=== PATIENT | male | born 1990 | race African-American/Black ===

== ENCOUNTER 2016-06-12 12:07 | Emergency (ER) | payer OTHER ==
[~2016-06-12] VITALS: Ht 167.6 cm; Wt 58.0 kg
[~2016-06-12 12:07] MED LIST: BENTYL20 MG PO
[2016-06-12] MEDS ORDERED: FLEXERIL10 MG PO (14:47)
[2016-06-12] MEDS ORDERED: NAPROSYN500 MG PO (14:47)
[2016-06-12 15:14] VITALS: BP 101/65
[2016-06-12] MEDS ORDERED: BENTYL20 MG PO (15:17)
== END 2016-06-12 15:21 | disposition home or self-care (01) ==
LOC: EME 12:07
DX: M54.5 Low back pain (principal); M25.562 Pain in left knee
CPT/HCPCS: 99281; 99283

== ENCOUNTER 2016-06-22 10:41 | Emergency (ER) | payer OTHER ==
[~2016-06-22] VITALS: Ht 170.2 cm; Wt 50.8 kg
[~2016-06-22 10:41] MED LIST changes: +FLEXERIL10 MG PO; +NAPROSYN500 MG PO
[2016-06-22 14:46] VITALS: BP 103/61
== END 2016-06-22 14:47 | disposition home or self-care (01) ==
LOC: EME → EDBD 10:41 → EME 10:41
PROC: 3E0234Z Introduction of Serum, Toxoid and Vaccine into Muscle, Percutaneous Approach (ICD-10-PCS; principal; 2016-06-22)
DX: S60.511A Abrasion of right hand, initial encounter (principal); S80.212A Abrasion, left knee, initial encounter; X99.1XXA Assault by knife, initial encounter; Y07.9 Unspecified perpetrator of maltreatment and neglect; Z23 Encounter for immunization
CPT/HCPCS: 99281; 99284

== ENCOUNTER 2016-06-24 09:38 | Emergency (ER) | payer OTHER ==
[~2016-06-24] VITALS: Ht 167.6 cm; Wt 58.2 kg
[2016-06-24 10:39] LABS: HEMATOCRIT 51.9 % (38.0-50.0); MCH 34.2 PG (29.0-34.0); MCHC 34.7 G/DL (30.0-36.0); MCV 98.5 FL (86-99); MEAN PLAT.VOLUME 9.6 uM^3 (9.0-12.4); PLATELET COUNT 249 K/uL (156-360); RBC DIS.WIDTH-CV 12.3 % (11.8-14.6); RED BLOOD COUNT 5.27 M/uL (4.00-5.50)
[2016-06-24 11:13] LABS: ADD MIUA? NO; BILIRUBIN NEGATIVE; BLOOD NEGATIVE; COLOR YELLOW ((YELLOW)); GLUCOSE (STRIP) NEGATIVE; KETONES NEGATIVE; LEUKOCYTES NEGATIVE; NITRITE NEGATIVE; PH, URINE 7.5 (5-8); PROTEIN (STRIP) NEGATIVE; SPECIFIC GRAVITY 1.019 (1.000-1.030); UCUL ADDED? NO; UROBILINOGEN 0.2 MG/DL (0.2-1.0)
[2016-06-24 11:25] LABS: AMPHETAMINE NEGATIVE (500 ng/mL); BARBITURATES NEGATIVE (200 ng/mL); BENZODIAZEPINES NEGATIVE (150 ng/mL); COCAINE NEGATIVE (150 ng/mL); INTERNAL CONTROLS VALID? YES; METHADONE NEGATIVE (200 ng/mL); METHAMPHETAMINE NEGATIVE (500 ng/mL); OPIATES (MORPHINE) NEGATIVE (100 ng/mL); OXYCODONE NEGATIVE (100 ng/mL); PHENCYCLIDINE NEGATIVE (25 ng/mL); PROPOXYPHENE NEGATIVE (300 ng/mL); THC CANNABINOIDS NEGATIVE (50 ng/mL); TRICYCLIC ANTIDEPRESSANTS NEGATIVE (300 ng/mL)
[2016-06-24 11:28] LABS: CHLORIDE 102 mEq/L (99-109); POTASSIUM 4.4 mEq/L (3.7-5.4); SODIUM 137 mEq/L (136-147)
[2016-06-24 11:30] LABS: GLUCOSE 68 mg/dL (70-99)
[2016-06-24 11:31] LABS: ANION GAP 12 MEQ/L (2-14)
[2016-06-24 11:32] LABS: TOTAL BILIRUBIN 0.5 mg/dL (0.0-1.0)
[2016-06-24 11:33] LABS: ALKALINE PHOSPHATASE 64 IU/L (3-129); SERUM ETHYL ALCOHOL < 10 mg/dL
[2016-06-24 11:34] LABS: GFR ESTIMATE (CALCULATED) > 59 mL/min/
[2016-06-24 11:35] LABS: UREA NITROGEN (BUN) 16 mg/dL (9-23)
[2016-06-24 11:37] LABS: LIPASE 185 U/L (1.0-51.0)
[2016-06-24] MEDS ORDERED: BENTYL20 MG PO (14:49)
[2016-06-24] MEDS ORDERED: NAPROXEN500 MG PO (14:49)
[2016-06-24] MEDS ORDERED: ULTRAM50 MG PO (14:50)
[2016-06-24] MEDS ORDERED: ZOFRAN4 MG PO (14:50)
[2016-06-24] MEDS ORDERED: CYCLOBENZAPRINE10 MG PO (14:50)
[2016-06-24 15:00] VITALS: BP 130/95
== END 2016-06-24 15:03 | disposition home or self-care (01) ==
LOC: EME 09:38
PROVIDERS: Emergency Medicine
DX: K80.20 Calculus of gallbladder without cholecystitis without obstruction (principal); F17.200 Nicotine dependence, unspecified, uncomplicated
CPT/HCPCS: 74177; 80053; 81003; 83690; 85027; 99281; 99285; G0480; J2405; J7030

== ENCOUNTER 2016-06-24 17:48 | Emergency (ER) | payer OTHER ==
[~2016-06-24] VITALS: Ht 160 cm; Wt 53.7 kg
[~2016-06-24 17:48] MED LIST changes: +CYCLOBENZAPRINE10 MG PO; +NAPROXEN500 MG PO; +ULTRAM50 MG PO; +ZOFRAN4 MG PO
[2016-06-24 20:25] VITALS: BP 124/84
== END 2016-06-24 20:32 | disposition home or self-care (01) ==
LOC: EME 17:48
DX: K80.50 Calculus of bile duct without cholangitis or cholecystitis without obstruction (principal); R10.11 Right upper quadrant pain; F17.200 Nicotine dependence, unspecified, uncomplicated
CPT/HCPCS: 76705; 83690; 99281; 99285; J2270; J2405

== ENCOUNTER 2016-07-07 17:26 | Emergency (ER) | payer OTHER ==
[~2016-07-07] VITALS: Ht 167.6 cm; Wt 51.8 kg
[2016-07-07 19:10] VITALS: BP 124/99
== END 2016-07-07 19:11 | disposition home or self-care (01) ==
LOC: EXP 17:26 → EME 17:26 → EXP 19:11
DX: R10.13 Epigastric pain (principal); M54.5 Low back pain
CPT/HCPCS: 99281; 99283

== ENCOUNTER 2016-07-19 13:46 | Emergency (ER) | payer OTHER ==
[~2016-07-19] VITALS: Ht 157.5 cm; Wt 54.0 kg
[2016-07-19 15:17] LABS: HEMATOCRIT 43.8 % (38.0-50.0); MCH 34.3 PG (29.0-34.0); MCHC 35.4 G/DL (30.0-36.0); MCV 96.9 FL (86-99); PLATELET COUNT 307 K/uL (156-360); RBC DIS.WIDTH-CV 11.9 % (11.8-14.6); RBC DIS.WIDTH-SD 40.5 % (39-53); RED BLOOD COUNT 4.52 M/uL (4.00-5.50); WHITE BLOOD COUNT 10.7 K/uL (4.1-10.2)
[2016-07-19 15:24] LABS: CHLORIDE 104 mEq/L (99-109); POTASSIUM 3.9 mEq/L (3.7-5.4); SODIUM 140 mEq/L (136-147)
[2016-07-19 15:26] LABS: GLUCOSE 79 mg/dL (70-99)
[2016-07-19 15:27] LABS: ANION GAP 10 MEQ/L (2-14)
[2016-07-19 15:28] LABS: TOTAL BILIRUBIN 0.5 mg/dL (0.0-1.0)
[2016-07-19 15:30] LABS: ALKALINE PHOSPHATASE 62 IU/L (3-129); GFR ESTIMATE (CALCULATED) > 59 mL/min/
[2016-07-19 15:31] LABS: UREA NITROGEN (BUN) 8 mg/dL (9-23)
[2016-07-19 16:59] LABS: EOSINOPHIL (%) 3.1 % (0-5); EOSINOPHIL COUNT 0.3 K/uL (0-0.3); IMMATURE GRANULOCYTE (%) 0.3 % (0.0-0.7); IMMATURE GRANULOCYTE COUNT 0.3 K/uL; LYMPHOCYTE COUNT 2.9 K/uL (1.0-2.8); MONOCYTE (%) 8.1 % (3-12); MONOCYTE COUNT 0.9 K/uL (0-0.8); NEUTROPHIL (%) 61.6 % (45-76); NEUTROPHIL COUNT 6.6 K/uL (1.8-6.4)
[2016-07-19 17:12] LABS: LIPASE 21 U/L (1.0-51.0)
[2016-07-19 17:21] LABS: ADD MIUA? NO; BILIRUBIN NEGATIVE; BLOOD NEGATIVE; COLOR YELLOW ((YELLOW)); GLUCOSE (STRIP) NEGATIVE; KETONES NEGATIVE; LEUKOCYTES NEGATIVE; NITRITE NEGATIVE; PROTEIN (STRIP) NEGATIVE; SPECIFIC GRAVITY 1.017 (1.000-1.030); UCUL ADDED? NO; UROBILINOGEN 0.2 MG/DL (0.2-1.0)
[2016-07-19] MEDS ORDERED: PRILOSEC20 MG PO (18:51)
[2016-07-19] MEDS ORDERED: MIRALAX17 GM PO (18:51)
[2016-07-19] MEDS ORDERED: ULTRAM50 MG PO (18:51)
[2016-07-19 20:15] VITALS: BP 130/79
== END 2016-07-19 20:16 | disposition home or self-care (01) ==
LOC: EME 13:46
DX: R10.10 Upper abdominal pain, unspecified (principal); K59.00 Constipation, unspecified; K80.20 Calculus of gallbladder without cholecystitis without obstruction; F17.200 Nicotine dependence, unspecified, uncomplicated
CPT/HCPCS: 74020; 80053; 81003; 83690; 85025; 85027; 99281; 99285; J1170; J1885; J2405; J7030; S0028

== ENCOUNTER 2016-09-20 19:43 | Emergency (ER) | payer OTHER ==
[~2016-09-20] VITALS: Ht 167.6 cm; Wt 58.6 kg
[~2016-09-20 19:43] MED LIST changes: +MIRALAX17 GM PO; +PRILOSEC20 MG PO
[2016-09-20 19:47] VITALS: BP 111/82
[2016-09-20] MEDS ORDERED: AMOXICILLIN875 MG PO (21:51)
[2016-09-20] MEDS ORDERED: MOTRIN600 MG PO (21:51)
== END 2016-09-20 22:14 | disposition home or self-care (01) ==
LOC: EME 19:43
DX: K08.89 Other specified disorders of teeth and supporting structures (principal); R07.1 Chest pain on breathing
CPT/HCPCS: 71020; 99281; 99284

== ENCOUNTER 2016-09-30 00:34 | Emergency (ER) | payer OTHER ==
[~2016-09-30] VITALS: Ht 167.6 cm; Wt 58.2 kg
[~2016-09-30 00:34] MED LIST changes: +AMOXICILLIN875 MG PO; +MOTRIN600 MG PO
[2016-09-30 03:39] LABS: EOSINOPHIL (%) 2.3 % (0-5); EOSINOPHIL COUNT 0.3 K/uL (0-0.3); HEMATOCRIT 42.2 % (38.0-50.0); IMMATURE GRANULOCYTE (%) 0.5 % (0.0-0.7); IMMATURE GRANULOCYTE COUNT 0.1 K/uL; LYMPHOCYTE COUNT 2.9 K/uL (1.0-2.8); MCH 34.4 PG (29.0-34.0); MCHC 34.1 G/DL (30.0-36.0); MEAN PLAT.VOLUME 9.2 uM^3 (9.0-12.4); MONOCYTE (%) 7.1 % (3-12); MONOCYTE COUNT 0.9 K/uL (0-0.8); PLATELET COUNT 313 K/uL (156-360); RBC DIS.WIDTH-CV 11.9 % (11.8-14.6); RBC DIS.WIDTH-SD 44.6 % (39-53); RED BLOOD COUNT 4.18 M/uL (4.00-5.50); WHITE BLOOD COUNT 12.1 K/uL (4.1-10.2)
[2016-09-30 03:50] LABS: CHLORIDE 106 mEq/L (99-109); POTASSIUM 3.8 mEq/L (3.7-5.4); SODIUM 141 mEq/L (136-147)
[2016-09-30 03:52] LABS: GLUCOSE 114 mg/dL (70-99)
[2016-09-30 03:53] LABS: ANION GAP 11 MEQ/L (2-14)
[2016-09-30 03:54] LABS: TOTAL BILIRUBIN 0.4 mg/dL (0.0-1.0)
[2016-09-30 03:56] LABS: ALKALINE PHOSPHATASE 62 IU/L (3-129); GFR ESTIMATE (CALCULATED) > 59 mL/min/
[2016-09-30 03:57] LABS: UREA NITROGEN (BUN) 13 mg/dL (9-23)
[2016-09-30 05:26] VITALS: BP 119/75
== END 2016-09-30 05:27 | disposition home or self-care (01) ==
LOC: EME 00:34
PROVIDERS: Emergency Medicine
DX: R20.0 Anesthesia of skin (principal); R29.898 Other symptoms and signs involving the musculoskeletal system; M79.661 Pain in right lower leg; F79 Unspecified intellectual disabilities; F17.200 Nicotine dependence, unspecified, uncomplicated
CPT/HCPCS: 70450; 73590; 73630; 80053; 85025; 99281; 99283